=== PATIENT | female | born 1950 | race Caucasian/White ===

== ENCOUNTER → 2016-10-04 | Outpatient (CLI) | payer MEDICARE, OTHER ==
--- NOTE | 2016-10-06 09:05 | MM ---
Reason for exam: screening (asymptomatic). Last mammogram was performed 1 year and 7 months ago. History: Patient is postmenopausal. Family history of breast cancer in sister. Physical Findings: A clinical breast exam by your physician is recommended on an annual basis and results should be correlated with mammographic findings. MG 3D Screening Mammo W/Cad Bilateral CC and MLO view(s) were taken. Prior study comparison: March 03, 2015, bilateral MG screening mammo w CAD. There are scattered fibroglandular densities. No suspicious abnormality. No significant changes when compared with prior studies. ASSESSMENT: Negative, BI-RAD 1 RECOMMENDATION: Routine screening mammogram of both breasts in 1 year.
== END | disposition home or self-care (01) ==
LOC: RADMAMWWP 07:43
PROVIDERS: ATTEND Family Medicine
DX: Z12.31 Encounter for screening mammogram for malignant neoplasm of breast (principal)
CPT/HCPCS: 77063; G0202

== ENCOUNTER → 2017-03-12 | Outpatient (CLI) | payer MEDICARE, OTHER ==
--- NOTE | 2017-03-12 08:49 | BD ---
EXAMINATION TYPE: MG DEXA axial skeleton. DATE OF EXAM: 03/12/2017 COMPARISON: NONE CLINICAL HISTORY: Z13.820 screeening osteroporosis Height: 60 Weight: 219.2 FRAX RISK QUESTIONS: Alcohol (3 or more units per day): no Family History (Parent hip fracture): no Glucocorticoids (More than 3mos): no (Ex: prednisone, prednisolone, methylprednisolone, dexamethasone, and hydrocortisone). History of Fracture in Adulthood: yes Secondary Osteoporosis: 1. Type 1 Diabetes: no 2. Hyperthyroidism: no 3. Menopause before 45: no 4. Malnutrition: no 5. Chronic liver disease: no Rheumatoid Arthritis: no Current Tobacco Use: no RISK FACTORS HISTORY OF: Hip Fracture (Right/Left): no Spine Fracture: no History of Wrist Fracture: no Surgery to Spine/Hip(right/left)/Wrist (right/left): no Family History of Osteoporosis: no Active: no Diet low in dairy products/other sources of calcium: yes Postmenopausal woman: age 45 Lost more than 2 inches in height since high school: no Frequent falls: no Poor Health: no Hyperparathyroidism: no Adrenal Insufficiency: no MEDICATIONS: statin, aspirin, bp med Additional History: EXAM MEASUREMENTS: Bone mineral densitometry was performed using the [employer] System. Bone mineral density as measured about the Lumbar spine is: ----- L1-L4(G/cm2): 1.433 T Score Values are as follows: ----- L2: 2.4 ----- L3: 3.0 ----- L4: 1.7 ----- L1-L4: 2.1 Bone mineral density baseline Bone mineral density about the R hip (g/cm2): 1.189 Bone mineral density about the L hip (g/cm2): 1.164 T Score values are as follows: -----R Neck: 1.1 -----L Neck: 0.9 -----R Total: 2.3 -----L Total: 2.5 Bone mineral density baseline IMPRESSION: No evidence for osteoporosis or osteopenia. NOTE: T-SCORE=SD OF THE YOUNG ADULT MEAN.
== END | disposition home or self-care (01) ==
LOC: RADBDWWP 07:20
PROVIDERS: ATTEND Family Medicine
DX: Z13.820 Encounter for screening for osteoporosis (principal)
CPT/HCPCS: 77080

== ENCOUNTER → 2018-04-09 | Outpatient (CLI) | payer MEDICARE, OTHER ==
--- NOTE | 2018-04-10 13:38 | MM ---
Reason for exam: screening (asymptomatic). Last mammogram was performed 1 year and 6 months ago. History: Patient is postmenopausal. Family history of breast cancer in sister. Physical Findings: A clinical breast exam by your physician is recommended on an annual basis and results should be correlated with mammographic findings. MG 3D Screening Mammo W/Cad Bilateral CC and MLO view(s) were taken. Prior study comparison: October 04, 2016, bilateral MG 3d screening mammo w/cad. March 03, 2015, bilateral MG screening mammo w CAD. The breast tissue is heterogeneously dense. This may lower the sensitivity of mammography. No significant changes when compared with prior studies. ASSESSMENT: Benign, BI-RAD 2 RECOMMENDATION: Routine screening mammogram of both breasts in 1 year.
== END ==
LOC: RADMAMWWP 12:57
PROVIDERS: ATTEND Family Medicine
DX: Z12.31 Encounter for screening mammogram for malignant neoplasm of breast (principal); Z13.820 Encounter for screening for osteoporosis
CPT/HCPCS: 77063; 77067

== ENCOUNTER → 2018-10-10 | Outpatient (CLI) | payer MEDICARE, OTHER | END | disposition home or self-care (01) | LOC: LABWHC1 15:34 | DX: R94.4 Abnormal results of kidney function studies (principal) | CPT/HCPCS: 82043 ==

== ENCOUNTER → 2019-04-15 | Outpatient (CLI) | payer MEDICARE, OTHER ==
--- NOTE | 2019-04-17 15:08 | MM ---
Reason for exam: screening (asymptomatic). Last mammogram was performed 1 year ago. History: Patient is postmenopausal. Family history of breast cancer in sister. Took hormonal contraceptives for 15 years. Physical Findings: A clinical breast exam by your physician is recommended on an annual basis and results should be correlated with mammographic findings. MG 3D Screening Mammo W/Cad Bilateral CC and MLO view(s) were taken. Prior study comparison: April 09, 2018, bilateral MG 3d screening mammo w/cad. October 04, 2016, bilateral MG 3d screening mammo w/cad. There are scattered fibroglandular densities. No significant changes when compared with prior studies. ASSESSMENT: Incomplete: need additional imaging evaluation, BI-RAD 0 RECOMMENDATION: Ultrasound of the left breast. [facility] will attempt to contact patient to return for ultrasound.
== END | disposition home or self-care (01) ==
LOC: RADMAMWWP 13:44
PROVIDERS: ATTEND Family Medicine
DX: Z12.31 Encounter for screening mammogram for malignant neoplasm of breast (principal); Z80.3 Family history of malignant neoplasm of breast
CPT/HCPCS: 77063; 77067

== ENCOUNTER → 2019-04-24 | Outpatient (CLI) | payer MEDICARE, OTHER ==
--- NOTE | 2019-04-24 11:00 | USB ---
Reason for exam: additional evaluation requested from abnormal screening. History: Patient is postmenopausal. Family history of breast cancer in sister. Took hormonal contraceptives for 15 years. Physical Findings: Nurse did not find any significant physical abnormalities on exam. US Breast Workup Limited LT Left limited breast ultrasound including focal area of concern, retroareolar and axilla demonstrates benign appearing axillary lymph nodes. These results were verbally communicated with the patient and result sheet given to the patient on 04/24/19. ASSESSMENT: Incomplete: need additional imaging evaluation, BI-RAD 0 RECOMMENDATION: Special view mammogram of the left breast. (left lateral and spot CC)
--- NOTE | 2019-04-24 11:01 | MM ---
Reason for exam: additional evaluation requested from abnormal screening. Last mammogram was performed less than 1 month ago. History: Patient is postmenopausal. Family history of breast cancer in sister. Took hormonal contraceptives for 15 years. MG 3D Work Up W/Cad LT Spot compression CC and ML view(s) were taken of the left breast. Prior study comparison: April 15, 2019, bilateral MG 3d screening mammo w/cad. April 09, 2018, bilateral MG 3d screening mammo w/cad. The breast tissue is heterogeneously dense. This may lower the sensitivity of mammography. Benign appearing calcifications in the left breast. The previously seen abnormality resolves on additional views and appears as fibroglandular tissue compatible with summation. These results were verbally communicated with the patient and result sheet given to the patient on 04/24/19. ASSESSMENT: Benign, BI-RAD 2 RECOMMENDATION: Return to routine screening mammogram schedule for both breasts.
== END | disposition home or self-care (01) ==
LOC: RADUSWWP 09:19
PROVIDERS: ATTEND Family Medicine
DX: R92.8 Other abnormal and inconclusive findings on diagnostic imaging of breast (principal)
CPT/HCPCS: 77065; 76642; G0279; 77061

== ENCOUNTER → 2019-06-24 | Outpatient (CLI) | payer MEDICARE, OTHER ==
--- NOTE | 2019-06-24 09:25 | US ---
EXAMINATION TYPE: US transvaginal DATE OF EXAM: 06/24/2019 COMPARISON: NONE CLINICAL HISTORY: N95.0 post menopausal bleeding. TECHNIQUE: Transvaginal (TV). Date of LMP: Patient was 44 when menses ceased EXAM MEASUREMENTS: Uterus: 8.0 x 2.9 x 1.4 cm Endometrial Stripe: 1.3 cm Right Ovary: 1.4 x 0.8 x 0.8 cm Left Ovary: 1.4 x 0.9 x0.9 cm 1. Uterus: Anteverted wnl 2. Endometrium: thickened, small anechoic structure within, possible cyst measuring 3mm 3. Right Ovary: wnl 4. Left Ovary: wnl 5. Bilateral Adnexa: wnl 6. Posterior cul-de-sac: wnl IMPRESSION: Small endometrial cyst. Otherwise unremarkable study.
== END | disposition home or self-care (01) ==
LOC: RADUSWWP 08:09
PROVIDERS: ATTEND Family Medicine
DX: N85.8 Other specified noninflammatory disorders of uterus (principal)
CPT/HCPCS: 76830

== ENCOUNTER → 2019-07-31 | Day surgery (SDC) | payer MEDICARE, OTHER ==
[2019-07-29 15:52] VITALS: BMI 40.0
--- NOTE | 2019-07-30 10:38 | P.HPOB ---
History of Present Illness H&P Date: 07/30/19 Chief Complaint: Postmenopausal bleeding Chelo is a 69-year-old female who had agonist and thickened endometrium on ultrasound. At the end of May she also had an episode of bleeding for approximately 5 days. No symptoms since then. She is scheduled for a D&C with hysteroscopy. Risks/benefits/alternatives were reviewed the patient in detail and all questions were answered for her prior to proceeding to the operative room. Past Medical History Past Medical History: Hyperlipidemia, Hypertension, Osteoarthritis (OA) History of Any Multi-Drug Resistant Organisms: None Reported Past Surgical History: Ear Surgery Additional Past Surgical History / Comment(s): RIGHT EAR SURGERY Past Anesthesia/Blood Transfusion Reactions: No Reported Reaction Smoking Status: Current every day smoker - Past Family History Sister(s) Family Medical History: Cancer Brother(s) Family Medical History: Cancer Medications and Allergies Home Medications Medication Instructions Recorded Confirmed Type Aspirin 81 mg PO DAILY 03/05/15 07/29/19 History Atorvastatin [Lipitor] 40 mg PO HS 03/05/15 07/29/19 History Calcium Carbonate/Vitamin D3 1 each PO DAILY 07/29/19 07/29/19 History [Calcium 600-Vit D3 800 Caplet] Lisinopril [Zestril] 10 mg PO DAILY 07/29/19 07/29/19 History Allergies Allergy/AdvReac Type Severity Reaction Status Date / Time Milk Containing Products Allergy Diarrhea Verified 07/30/19 08:23 Exam Osteopathic Statement: *. No significant issues noted on an osteopathic structural exam other than those noted in the History and Physical/Consult. Intake and Output 07/29/19 07/30/19 07/30/19 22:59 06:59 14:59 Other: Weight 92.986 kg - OBG Physical Exam Breast: both: normal (no masses) Abdomen: bowel sounds normal, no diffuse tenderness, no bruit present, no guarding noted, no hepatomegaly, no splenomegaly, no mass Vulva: both: normal Vagina: normal moisture, no discharge Cervix: no lesion, no discharge Uterus: normal size, normal contour Adnexa: both: normal Anus/Rectum: normal perianal skin, no rectal mass, no hemorrhoids, heme negative
[~2019-07-31] MED LIST: DEXAMETHASONE SOD PHOSPHATE 10 MG/ML 1 ML VIAL IV ONE; HYDROmorphone 0.5 MG/0.5 ML SYRINGE IVP PRN; IBUPROFEN 200 MG TAB PO ONE; LACTATED RINGERS 1,000 ML IV SCH; LIDOCAINE 1% (10MG/ML) FOR IV START INTRADERMA ONE; LIDOCAINE 1% INJ 10MG/ML (20 ML MDV) ONE; MIDAZOLAM 2 MG/2 ML VIAL ONE; ONDANSETRON 4 MG/2 ML VIAL IVP ONE; PROPOFOL 10 MG/ML 20 ML VIAL IV ONE; Pre Op ABX Message 1 EACH MISC MISCELLANE ONE; fentaNYL (PF) 50 MCG/ML 2 ML AMP ONE
--- NOTE | 2019-07-31 11:18 | P.OP ---
Date of Procedure: 07/31/19 Preoperative Diagnosis: Postmenopausal bleeding Postoperative Diagnosis: Same with polyp Procedure(s) Performed: D&C with hysteroscopy and polypectomy Anesthesia: MONO Surgeon: Jayjay Austin Estimated Blood Loss (ml): 3 IV fluids (ml): 800 Pathology: other (Uterine curettings) Condition: stable Disposition: same day Operative Findings: Polyp noted await pathology Description of Procedure: Patient was taken to the operating suite where general anesthetic was found be adequate. She was prepped and draped in the normal sterile fashion and placed in the dorsal lithotomy position. Initially a speculum was inserted into the [place] and the anterior lip of the cervix identified and grasped with an Allis clamp. Uterus was then sounded to 6 cm and then was carefully dilated. Camera was then inserted with large polyp noted on the posterior wall. Sharp curettings were then obtained and placed on Telfa and sent to pathology. Polyp was then grasped with polyp forceps and removed in several pieces. Polyp was felt to be essentially completely removed however as no further polyp was able to be palpated during the removal process. Once this was completed all instruments removed. Sponge, lap, needle counts were all correct 2. Patient was then taken to the recovery room in stable and satisfactory condition. Plan - Discharge Summary Discharge Rx Participant: No New Discharge Prescriptions: New Ibuprofen [Motrin] 600 mg PO Q6HR PRN #30 tab PRN Reason: Pain No Action Atorvastatin [Lipitor] 40 mg PO HS Aspirin 81 mg PO DAILY Lisinopril [Zestril] 10 mg PO DAILY Calcium Carbonate/Vitamin D3 [Calcium 600-Vit D3 800 Caplet] 1 each PO DAILY Discharge Medication List Aspirin 81 mg PO DAILY 03/05/15 [History] Atorvastatin [Lipitor] 40 mg PO HS 03/05/15 [History] Calcium Carbonate/Vitamin D3 [Calcium 600-Vit D3 800 Caplet] 1 each PO DAILY 07/29/19 [History] Lisinopril [Zestril] 10 mg PO DAILY 07/29/19 [History] Ibuprofen [Motrin] 600 mg PO Q6HR PRN #30 tab 07/31/19 [Rx] Follow up Appointment(s)/Referral(s): Jayjay Austin DO [Doctor of Osteopathic Medicine] - 1 Week Activity/Diet/Wound Care/Special Instructions: No heavy lifting, limit stairs and driving, and pelvic rest. If any high temperatures, heavy bleeding, or severe pain call my office
[2019-07-31 11:39] VITALS: TEMP 96.8
[2019-07-31 13:37] VITALS: BP 159/93; PULSE 61; RESP 20
== END ==
LOC: OR 09:41
PROVIDERS: ATTEND Obstetrics & Gynecology
DX: N85.00 Endometrial hyperplasia, unspecified (principal); N95.0 Postmenopausal bleeding; I10 Essential (primary) hypertension; E78.5 Hyperlipidemia, unspecified; F17.210 Nicotine dependence, cigarettes, uncomplicated; Z79.82 Long term (current) use of aspirin; Z79.899 Other long term (current) drug therapy
CPT/HCPCS: 93005; 88305; 58558; J2250; J1100; J2405; J2001; J3010; J2704

== ENCOUNTER 2019-12-23 06:27 | Day surgery (SDC) | payer MEDICARE, OTHER ==
--- NOTE | 2019-12-19 15:58 | P.HPOB ---
History of Present Illness H&P Date: 12/19/19 Chief Complaint: Uterine hyperplasia Chelo is a 69-year-old female who had tubal hyperplasia 3 months ago and was started on progestins to cataract this hyperplasia. She is now scheduled for repeat D&C to verify the hyperplasia is resolved. Risks/benefits/alternatives were reviewed and all questions were answered for her prior to proceeding to the operative room. Past Medical History Past Medical History: Hyperlipidemia, Hypertension, Osteoarthritis (OA) History of Any Multi-Drug Resistant Organisms: None Reported Past Surgical History: Ear Surgery Additional Past Surgical History / Comment(s): RIGHT EAR SURGERY Past Anesthesia/Blood Transfusion Reactions: No Reported Reaction Past Psychological History: No Psychological Hx Reported Past Alcohol Use History: None Reported Additional Past Alcohol Use History / Comment(s): STARTED SMOKING AT AGE 14 SMOKED 2-3 PACKS RECENTLY SMOKING 1/4 PPD Past Drug Use History: None Reported - Past Family History Sister(s) Family Medical History: Cancer Brother(s) Family Medical History: Cancer Medications and Allergies Home Medications Medication Instructions Recorded Confirmed Type Aspirin 81 mg PO DAILY 03/05/15 07/29/19 History Atorvastatin [Lipitor] 40 mg PO HS 03/05/15 07/31/19 History Calcium Carbonate/Vitamin D3 1 each PO DAILY 07/29/19 07/29/19 History [Calcium 600-Vit D3 800 Caplet] lisinopriL [Zestril] 10 mg PO DAILY 07/29/19 07/31/19 History Ibuprofen [Motrin] 600 mg PO Q6HR PRN #30 tab 07/31/19 Rx Allergies Allergy/AdvReac Type Severity Reaction Status Date / Time Milk Containing Products Allergy Diarrhea Verified 07/30/19 08:23 Exam Osteopathic Statement: *. No significant issues noted on an osteopathic structural exam other than those noted in the History and Physical/Consult. - OBG Physical Exam Breast: both: normal (no masses) Abdomen: bowel sounds normal, no diffuse tenderness, no bruit present, no guarding noted, no hepatomegaly, no splenomegaly, no mass Vulva: both: normal Vagina: normal moisture, no discharge Cervix: no lesion, no discharge Uterus: normal size, normal contour Adnexa: both: normal Anus/Rectum: normal perianal skin, no rectal mass, no hemorrhoids, heme negative
[2019-12-22 09:03] VITALS: BMI 38.5
[~2019-12-23 06:27] MED LIST changes: -DEXAMETHASONE SOD PHOSPHATE 10 MG/ML 1 ML VIAL IV ONE; +DEXAMETHASONE SOD PHOSPHATE 4 MG/ML 1 ML VIAL IV ONE; -IBUPROFEN 200 MG TAB PO ONE; -LIDOCAINE 1% (10MG/ML) FOR IV START INTRADERMA ONE; -LIDOCAINE 1% INJ 10MG/ML (20 ML MDV) ONE; +MIDAZOLAM 2 MG/2 ML VIAL IV PRN; -MIDAZOLAM 2 MG/2 ML VIAL ONE; -PROPOFOL 10 MG/ML 20 ML VIAL IV ONE; -fentaNYL (PF) 50 MCG/ML 2 ML AMP ONE
[2019-12-23 07:03] LABS: Glucose,Whole Blood 97 mg/dL (75-99)
[2019-12-23 07:06] VITALS: TEMP 98.2
[2019-12-23] MEDS ORDERED: LIDOCAINE 1% (10MG/ML) FOR IV START INTRADERMA ONE (07:06)
[2019-12-23 07:10] LABS: Basophils # (A) 0.1 k/uL (0-0.2); Basophils % (A) 1 %; Eosinophils # (A) 0.4 k/uL (0-0.7); Eosinophils % (A) 4 %; HCT 42.4 % (34.0-46.0); HGB 13.9 gm/dL (11.4-16.0); Lymphocytes # (A) 2.9 k/uL (1.0-4.8); Lymphocytes % (A) 31 %; MCH 31.5 pg (25.0-35.0); MCHC 32.7 g/dL (31.0-37.0); MCV 96.4 fL (80.0-100.0); Mean Platelet Volume 8.9; Monocytes # (A) 0.5 k/uL (0-1.0); Monocytes % (A) 6 %; Neutrophils # (A) 5.3 k/uL (1.3-7.7); Neutrophils % (A) 56 %; Platelet Count 253 k/uL (150-450); RDW 12.9 % (11.5-15.5); WBC 9.4 k/uL (3.8-10.6)
[2019-12-23 07:21] LABS: Calcium 9.2 mg/dL (8.4-10.2); Potassium 4.1 mmol/L (3.5-5.1)
[2019-12-23] MEDS ORDERED: PROPOFOL 10 MG/ML 20 ML VIAL IV ONE (07:31)
[2019-12-23] MEDS ORDERED: LIDOCAINE 1% INJ 10MG/ML (20 ML MDV) ONE (07:31)
[2019-12-23] MEDS ORDERED: MIDAZOLAM 2 MG/2 ML VIAL ONE (07:31)
[2019-12-23] MEDS ORDERED: fentaNYL (PF) 50 MCG/ML 2 ML AMP ONE (07:31)
--- NOTE | 2019-12-23 08:03 | P.OP ---
Date of Procedure: 12/23/19 Preoperative Diagnosis: uterine hyperplasia Postoperative Diagnosis: Same Procedure(s) Performed: D&C with hysteroscopy Anesthesia: MONO Surgeon: Jayjay Austin Estimated Blood Loss (ml): 3 Pathology: other (Uterine curettings) Condition: stable Operative Findings: No hyperplasia noted visually. Scant tissue collected likely secondary to Provera effect Description of Procedure: Patient was taken to the operating suite where a general anesthetic was found be adequate. She was prepped and draped in normal sterile fashion and placed in dorsal lithotomy position. Initially a weighted speculum was inserted in the vagina and the anterior lip of the cervix was identified and grasped an Allis clamp. Cervix was then dilated and camera was inserted. No hyperplasia noted therefore camera was removed and sharp curettings of endometrium were obtained. This tissues collected, placed on Telfa, and sent to pathology for evaluation. All instruments were then removed. Sponge, lap, needle counts were all correct 2. Patient was then taken to recovery room in stable and satisfactory condition. Plan - Discharge Summary Discharge Rx Participant: No New Discharge Prescriptions: New Ibuprofen [Motrin] 600 mg PO Q6HR PRN #30 tab PRN Reason: Pain No Action Atorvastatin [Lipitor] 40 mg PO DAILY Aspirin 81 mg PO DAILY lisinopriL [Zestril] 10 mg PO DAILY diphenhydrAMINE [Benadryl] 25 mg PO DIRECTED PRN PRN Reason: Allergy Symptoms Medroxyprogesterone Acetate [Provera] 10 mg PO DAILY Calcium Citrate/Vitamin D3 [Citracal + D Maximum Caplet] 1 each PO DAILY Discharge Medication List Aspirin 81 mg PO DAILY 03/05/15 [History] Atorvastatin [Lipitor] 40 mg PO DAILY 03/05/15 [History] lisinopriL [Zestril] 10 mg PO DAILY 07/29/19 [History] Calcium Citrate/Vitamin D3 [Citracal + D Maximum Caplet] 1 each PO DAILY 12/22/19 [History] Medroxyprogesterone Acetate [Provera] 10 mg PO DAILY 12/22/19 [History] diphenhydrAMINE [Benadryl] 25 mg PO DIRECTED PRN 12/22/19 [History] Ibuprofen [Motrin] 600 mg PO Q6HR PRN #30 tab 12/23/19 [Rx] Follow up Appointment(s)/Referral(s): Jayjay Austin DO [Doctor of Osteopathic Medicine] - 1 Week Sotero Campos MD [Primary Care Provider] - 1-2 Days Activity/Diet/Wound Care/Special Instructions: No heavy lifting, limit stairs and driving, and pelvic rest. She is aware to call the office for any high temperatures, heavy bleeding, or severe pain and needs to follow up with her primary care provider in the next day or 2 for an abnormal EKG
[2019-12-23 08:33] VITALS: RESP 16
[2019-12-23 09:41] VITALS: BP 129/82; PULSE 68
== END 2019-12-23 09:56 | disposition home or self-care (01) ==
LOC: OR 06:27
PROVIDERS: ATTEND Obstetrics & Gynecology
DX: N85.01 Benign endometrial hyperplasia (principal); E78.5 Hyperlipidemia, unspecified; I10 Essential (primary) hypertension; M19.90 Unspecified osteoarthritis, unspecified site; F17.210 Nicotine dependence, cigarettes, uncomplicated; K08.409 Partial loss of teeth, unspecified cause, unspecified class; R06.09 Other forms of dyspnea; K75.9 Inflammatory liver disease, unspecified; Z88.6 Allergy status to analgesic agent; Z98.890 Other specified postprocedural states; Z79.82 Long term (current) use of aspirin; Z79.899 Other long term (current) drug therapy; Z79.1 Long term (current) use of non-steroidal anti-inflammatories (NSAID); Z91.011 Allergy to milk products; Z91.89 Other specified personal risk factors, not elsewhere classified; Z80.9 Family history of malignant neoplasm, unspecified
CPT/HCPCS: 88305; 80048; 85025; 58558; J2250; J1100; J2405; J2001; J3010; J2704

== ENCOUNTER → 2020-04-01 | Outpatient (CLI) | payer MEDICARE, OTHER ==
--- NOTE | 2020-04-01 16:29 | CTL ---
EXAMINATION TYPE: CT Low Dose Lung DATE OF EXAM ORDERED: 04/01/2020 COMPARISON: None HISTORY: . Low Dose CT Lung Screening CT DLP: 78.[address] CTDI: 2.4 mGy IV CONTRAST USED: None. SCREENING VISIT: First visit COMPARISON: None. TECHNIQUE: Low dose computed tomography scan was performed through the chest at 1 millimeter thick se ctions and reconstructed images in the coronal plane at [address] DIAGNOSTIC QUALITY: Satisfactory FINDINGS: LUNG NODULES: Pleural-based groundglass and nodular density left upper lobe posteriorly measuring 7.9 mm. 2 mm solid nodule right upper lobe image 47. Groundglass area of nodularity anteriorly right upp er lobe image 61 measures 4.7 mm. LUNGS: COPD: Severity: None Fibrosis: Severity:None Lymph nodes: None Other findings: None RIGHT PLEURAL SPACE: Effusion: None Calcification: None Thickening: None Pneumothorax: None LEFT PLEURAL SPACE: Effusion: None Calcification: None Thickening: None Pneumothorax: None HEART: Heart Size: Moderately enlarged Coronary calcification: Mild Pericardial effusion: None OTHER FINDINGS: Upper abdomen: No significant abnormality Bony thorax: Degenerative changes Supraclavicular region: No significant abnormalityOther: No significant abnormalityI IMPRESSION: Benign FOLLOW UP CT CHEST RECOMMENDATION: Follow-up study in [address] cessation [address]. [address] LUNG RAD: LUNG RAD CATEGORY 3 probably benign.
== END | disposition home or self-care (01) ==
LOC: RADCTMAIN 15:56
PROVIDERS: ATTEND Family Medicine
DX: Z12.2 Encounter for screening for malignant neoplasm of respiratory organs (principal); F17.210 Nicotine dependence, cigarettes, uncomplicated
CPT/HCPCS: 71271

== ENCOUNTER → 2020-05-28 | Outpatient (CLI) | payer MEDICARE, OTHER ==
--- NOTE | 2020-05-30 13:36 | BD ---
EXAMINATION TYPE: Axial Bone Density DATE OF EXAM: 05/28/2020 COMPARISON: 03/12/2017 CLINICAL HISTORY: 70-year-old female postmenopausal screening Height: 60.5 IN Weight: 191 LBS FRAX RISK QUESTIONS: History of Fracture in Adulthood: LT ANKLE AGE 51; RT WRIST AGE 55 Secondary Osteoporosis: 3. Menopause before 45: AGE 44 Current Tobacco Use: OCCASIONAL RISK FACTORS HISTORY OF: History of Wrist Fracture: RT WRIST AGE 55 Active: MODERATE Diet low in dairy products/other sources of calcium: YES Postmenopausal woman: AGE 44 Take estrogen and/or progesterone medications: TOOK PROVERA FOR 6 WEEKS AT AGE 69 MEDICATIONS: Additional Medications: CALCIUM, VIT D, CHOLESTEROL, BLOOD PRESSURE, BABY ASPIRIN EXAM MEASUREMENTS: Bone mineral densitometry was performed using the [employer] System. Bone mineral density as measured about the Lumbar spine is: ----- L1-L4(G/cm2): 1.505 T Score Values are as follows: ----- L2: 2.7 ----- L3: 3.1 ----- L4: 3.0 ----- L1-L4: 2.7 Bone mineral density has: Increased 4.9% since study of: 03/12/2017 Bone mineral density about the R hip (g/cm2): 1.200 Bone mineral density about the L hip (g/cm2): 1.190 T Score values are as follows: -----R Neck: 1.2 -----L Neck: 1.1 -----R Total: 2.5 -----L Total: 2.7 Bone mineral density has: Increased 2.1% since study of: 03/12/2017 IMPRESSION: Normal (Values between +1 and -1 indicate normal bone mass). Consider repeating this study in 5 year s or sooner if there is some new clinical indication. NOTE: T-SCORE=SD OF THE YOUNG ADULT MEAN.
--- NOTE | 2020-05-31 08:44 | MM ---
Reason for exam: screening (asymptomatic). Last mammogram was performed 1 year and 1 month ago. History: Patient is postmenopausal. Family history of breast cancer in sister. Took hormonal contraceptives for 15 years. Physical Findings: A clinical breast exam by your physician is recommended on an annual basis and results should be correlated with mammographic findings. MG 3D Screening Mammo W/Cad Bilateral CC and MLO view(s) were taken. Prior study comparison: April 15, 2019, bilateral MG 3d screening mammo w/cad. April 09, 2018, bilateral MG 3d screening mammo w/cad. October 04, 2016, bilateral MG 3d screening mammo w/cad. There are scattered fibroglandular densities. There are benign appearing round linear calcifications bilaterally. There is no discrete abnormality. ASSESSMENT: Benign, BI-RAD 2 RECOMMENDATION: Routine screening mammogram of both breasts in 1 year.
== END | disposition home or self-care (01) ==
LOC: RADMAMWWP 09:48
PROVIDERS: ATTEND Family Medicine
DX: Z12.31 Encounter for screening mammogram for malignant neoplasm of breast (principal); Z13.820 Encounter for screening for osteoporosis; Z78.0 Asymptomatic menopausal state; Z80.3 Family history of malignant neoplasm of breast
CPT/HCPCS: 77063; 77067; 77080

== ENCOUNTER → 2020-08-09 | Outpatient (CLI) | payer MEDICARE, OTHER ==
[2020-08-09 12:09] LABS: Creatinine 24 Hour,Urine 1102.4 mg/24hr (800.0-1800.0)
[2020-08-09 16:24] LABS: Total Volume 24 Hour,Urine 1600 mL
== END | disposition home or self-care (01) ==
LOC: LABWHC1 08:27
PROVIDERS: ATTEND Family Medicine
DX: N18.31 Chronic kidney disease, stage 3a (principal)
CPT/HCPCS: 36415; 81050; 82575; 84156

== ENCOUNTER → 2020-08-19 | Outpatient (CLI) | payer MEDICARE, OTHER ==
--- NOTE | 2020-08-19 09:40 | US ---
EXAMINATION TYPE: US abdomen comp/pelvis limited DATE OF EXAM: 08/19/2020 COMPARISON: NONE CLINICAL HISTORY: HTN I10,N18.31 CKD stage 3, O87.891 former smoker. Abnormal labs per patient. No pa in. EXAM MEASUREMENTS: Liver Length: 16.8 cm Gallbladder Wall: 0.2 cm CBD: 0.4 cm Spleen: 9.5 cm Right Kidney: 9.6 x 4.0 x 4.2 cm Left Kidney: 9.5 x 4.2 x 5.1 cm Pancreas: Visualized portions pancreas unremarkable. Liver: wnl no discrete hepatic mass or intrahepatic biliary dilatation. Gallbladder: wnl CBD: wnl Spleen: wnl Right Kidney: No hydronephrosis or masses seen right kidney is small measuring 85 mL. Left Kidney: No hydronephrosis or masses seen Upper IVC: wnl Abd Aorta: No AAA visualized Bladder: wnl, distended, anechoic Bilateral Jets not seen IMPRESSION: 1. No hydronephrosis or shadowing renal calculi. 2. No gallstones. 3. No hydronephrosis or shadowing renal calculi. The right kidney is small.
== END | disposition home or self-care (01) ==
LOC: RADUSWWP 08:50
PROVIDERS: ATTEND Family Medicine
DX: I12.9 Hypertensive chronic kidney disease with stage 1 through stage 4 chronic kidney disease, or unspecified chronic kidney disease (principal); N18.30 Chronic kidney disease, stage 3 unspecified; Z87.891 Personal history of nicotine dependence
CPT/HCPCS: 76700; 76857

== ENCOUNTER → 2020-10-04 | Outpatient (CLI) | payer MEDICARE, OTHER ==
--- NOTE | 2020-10-05 07:14 | CTL ---
EXAMINATION TYPE: CT Low Dose Lung DATE OF EXAM ORDERED: 10/04/2020 HISTORY: Long-term tobacco use. Lung cancer screening CT DLP: 71.[address] CTDI: 2.4 mGy Automated exposure control for dose reduction was used. SCREENING VISIT: First after baseline COMPARISON: CT Low Dose Lung screening April 01, 2020 TECHNIQUE: Low dose computed tomography scan was performed through the chest at 1 mm thick sections a nd reconstructed images in the coronal plane at [address] DIAGNOSTIC QUALITY: Satisfactory FINDINGS: LUNG NODULES: Present, detailed below: Scattered micronodules predominantly in the right upper lung, largest measures 3.7 x 2.9 mm periphera l right upper lobe axial image 29 unchanged from prior. Stable 7 to 8 mm posterior groundglass nodula rity axial image 33 has more linear orientation on coronal and sagittal images favoring focal scarrin g. No new or enlarging greater than 6 mm nodules. LUNGS: COPD: Severity: Minimal Fibrosis: Severity: Stable mild left basilar Lymph nodes: No new greater than 1 cm Other findings: None RIGHT PLEURAL SPACE: Effusion: None Calcification: None Thickening: None Pneumothorax: None LEFT PLEURAL SPACE: Effusion: None Calcification: None Thickening: None Pneumothorax: None HEART: Heart Size: Mild to moderately enlarged Coronary calcification: At least moderate in the RCA and LAD distribution Pericardial effusion: None OTHER FINDINGS: Upper abdomen: None Bony thorax: Mild to moderate multilevel spurring Supraclavicular region: None Other: Mild to moderate calcified plaque of the aorta IMPRESSION: No suspicious new or enlarging nodules CT LUNG RAD AND CT CHEST RECOMMENDATION: Lung-Rad 2 Benign Appearance or Behavior: Continue annual sc reening with LDCT in 12 months. S Modifier (other clinically significant findings): S Moderate to severe coronary artery calcification. Correlate with additional cardiac risk factors.
== END | disposition home or self-care (01) ==
LOC: RADCTMAIN 16:10
PROVIDERS: ATTEND Family Medicine
DX: Z12.2 Encounter for screening for malignant neoplasm of respiratory organs (principal); Z87.891 Personal history of nicotine dependence
CPT/HCPCS: 71271

== ENCOUNTER → 2021-06-17 | Outpatient (CLI) | payer MEDICARE ==
--- NOTE | 2021-06-20 09:39 | MM ---
Reason for exam: screening (asymptomatic). Last mammogram was performed 1 year and 1 month ago. History: Patient is postmenopausal. Family history of breast cancer in sister. Took hormonal contraceptives for 15 years. Physical Findings: A clinical breast exam by your physician is recommended on an annual basis and results should be correlated with mammographic findings. MG 3D Screening Mammo W/Cad Bilateral CC and MLO view(s) were taken. Prior study comparison: May 28, 2020, bilateral MG 3d screening mammo w/cad. April 24, 2019, left breast MG 3d work up w/cad LT. The breast tissue is heterogeneously dense. This may lower the sensitivity of mammography. Stable benign calcifications. There is no discrete abnormality. No significant changes when compared with prior studies. ASSESSMENT: Benign, BI-RAD 2 RECOMMENDATION: Routine screening mammogram of both breasts in 1 year.
== END | disposition home or self-care (01) ==
LOC: RADMAMWWP 16:18
PROVIDERS: ATTEND Family Medicine
DX: Z12.31 Encounter for screening mammogram for malignant neoplasm of breast (principal); Z80.3 Family history of malignant neoplasm of breast; Z78.0 Asymptomatic menopausal state
CPT/HCPCS: 77063; 77067

== ENCOUNTER 2022-05-03 10:54 | Emergency (ER) | payer MEDICARE ==
[2022-05-03 11:21] VITALS: TEMP 98.4
[2022-05-03 12:23] LABS: Basophils # (A) 0.1 k/uL (0-0.2); Basophils % (A) 1 %; Eosinophils # (A) 0.3 k/uL (0-0.7); Eosinophils % (A) 4 %; HGB 13.9 gm/dL (11.4-16.0); Lymphocytes # (A) 2.1 k/uL (1.0-4.8); Lymphocytes % (A) 28 %; MCHC 33.2 g/dL (31.0-37.0); MCV 93.6 fL (80.0-100.0); Mean Platelet Volume 9.9; Monocytes # (A) 0.4 k/uL (0-1.0); Monocytes % (A) 6 %; Neutrophils # (A) 4.4 k/uL (1.3-7.7); Neutrophils % (A) 59 %; Platelet Count 233 k/uL (150-450); RBC 4.49 m/uL (3.80-5.40); WBC 7.5 k/uL (3.8-10.6)
[2022-05-03 12:33] LABS: Albumin 4.1 g/dL (3.5-5.0); Calcium 9.3 mg/dL (8.4-10.2); Potassium 4.3 mmol/L (3.5-5.1); Total Bilirubin 0.6 mg/dL (0.2-1.3); Total Protein 7.2 g/dL (6.3-8.2)
[2022-05-03 12:43] LABS: Partial Thromboplastin Time 22.1 sec (22.0-30.0); Prothrombin Time 10.2 sec (9.0-12.0)
--- NOTE | 2022-05-03 13:29 | ED ---
General Adult HPI - General Chief complaint: Recheck/Abnormal Lab/Rx Stated complaint: abn ekg - sent by pcp Time Seen by Provider: 05/03/22 11:23 Source: patient, family, RN notes reviewed, old records reviewed Mode of arrival: wheelchair Limitations: no limitations - History of Present Illness Initial comments: Patient is a 72-year-old female sent over from her PCPs over concern for abnormal EKG findings. They did contact me and they're considered patient was in a second degree heart block. Patient presented for blood pressure checks that they have been adjusting blood pressure medications. Currently has no acute complaints at this time. Denies chest pain, shortness breath, abdominal pain, nausea, vomiting. Denies any other acute complaints. Denies any presyncopal episodes. Denies any lightheadedness. Presents over concern for the EKG findings. Blood pressure has been lower and they have been reducing her blood pressure medications over this time as she appears that she does not need them. - Related Data Home Medications Medication Instructions Recorded Confirmed Aspirin 81 mg PO DAILY 03/05/15 12/23/19 Atorvastatin [Lipitor] 40 mg PO DAILY 03/05/15 12/23/19 lisinopriL [Zestril] 10 mg PO DAILY 07/29/19 12/23/19 Calcium Citrate/Vitamin D3 1 each PO DAILY 12/22/19 12/23/19 [Citracal + D Maximum Caplet] Medroxyprogesterone Acetate 10 mg PO DAILY 12/22/19 12/23/19 [Provera] diphenhydrAMINE [Benadryl] 25 mg PO DIRECTED PRN 12/22/19 12/23/19 Previous Rx's Medication Instructions Recorded Ibuprofen [Motrin] 600 mg PO Q6HR PRN #30 tab 12/23/19 Allergies Allergy/AdvReac Type Severity Reaction Status Date / Time Milk Containing Products Allergy Diarrhea Verified 05/03/22 11:21 Review of Systems ROS Statement: Those systems with pertinent positive or pertinent negative responses have been documented in the HPI. Review of Systems: CONST: Denies fever EYES: Denies blurry vision ENT: Denies nasal congestion C/V: Denies Chest pain RESP: Denies shortness of breath GI: Denies abdominal pain : Denies dysuria SKIN: Denies rash. MSK: Denies joint pain. NEURO: Denies headache ROS Other: All systems not noted in ROS Statement are negative. Past Medical History Past Medical History: Hyperlipidemia, Hypertension, Osteoarthritis (OA) Additional Past Medical History / Comment(s): LACTOSE INTOLERANT, ANEMIA., STATES SOB AT TIMES -"I WONDER IF I HAVE COPD" History of Any Multi-Drug Resistant Organisms: None Reported Past Surgical History: Ear Surgery Additional Past Surgical History / Comment(s): RIGHT EAR SURGERY Past Anesthesia/Blood Transfusion Reactions: Postoperative Nausea & Vomiting (PONV) Past Psychological History: No Psychological Hx Reported Smoking Status: Current every day smoker Past Alcohol Use History: None Reported Past Drug Use History: None Reported - Past Family History Sister(s) Family Medical History: Cancer, Diabetes Mellitus Additional Family Medical History / Comment(s): BREAST & FEMALE CANCER Brother(s) Family Medical History: Cancer Additional Family Medical History / Comment(s): BONE AND BLOOD CANCER Mother Family Medical History: Diabetes Mellitus Daughter(s) Additional Family Medical History / Comment(s): HYPOGLYCEMIA General Exam - General Exam Comments Initial Comments: General: Appears in no acute distress. HEAD: Normal with no signs of head trauma. EYES: PERRLA, EOMI, conjunctiva normal, no discharge. ENT: Hearing grossly intact, normal oropharynx. RESPIRATORY: Clear breath sounds bilaterally. No wheezes, rales, or rhonchi. C/V: Regular rate and rhythm. S1 and S2 auscultated, no edema, peripheral pu lses 2+ and intact throughout ABD: Abd is soft, nontender, nondistended EXT: Normal range of motion, no obvious deformity SKIN: No rashes or lesions observed on exposed skin. NEURO: Alert and oriented 4. Limitations: no limitations Course Vital Signs 05/03/22 05/03/22 05/03/22 11:15 11:40 11:50 Temperature 98.4 F Pulse Rate 113 H 96 112 H Respiratory 18 17 14 Rate Blood Pressure 103/71 106/83 121/80 O2 Sat by Pulse 95 95 95 Oximetry 05/03/22 14:02 Temperature Pulse Rate 56 L Respiratory 18 Rate Blood Pressure 131/70 O2 Sat by Pulse 97 Oximetry Medical Decision Making - Medical Decision Making Was pt. sent in by a medical professional or institution (, PA, IMAGE ASSEMBLER, urgent care, hospital, or [facility]...) When possible be specific @ -Patient sent in by Dr. Ramirez's office for further evaluation. Did you speak to anyone other than the patient for history (EMS, parent, family, police, friend...)? What history was obtained from this source @ -No Did you review nursing and triage notes (agree or disagree)? Why? @ -I reviewed and agree with nursing and triage notes Were old charts reviewed (outside hosp., previous admission, EMS record, old EKG, old radiological studies, urgent care reports/EKG's, [facility] records)? Report findings @ -Yes, old charts were reviewed including EKGs from 2019. Differential Diagnosis (chest pain, altered mental status, abdominal pain women, abdominal pain men, vaginal bleeding, weakness, fever, dyspnea, syncope, headache, dizziness, GI bleed, back pain, seizure, CVA, palpatations, mental health, musculoskeletal)? @ -Dysrhythmia, electrolyte abnormality, dehydration, heart block. This list is not all-inclusive. EKG interpreted by me (3pts min.). @ -As above X-rays interpreted by me (1pt min.). @ -None done CT interpreted by me (1pt min.). @ -None done U/S interpreted by me (1pt. min.). @ -None done What testing was considered but not performed or refused? (CT, X-rays, U/S, labs)? Why? @ -None What meds were considered but not given or refused? Why? @ -None Did you discuss the management of the patient with other professionals (professionals i.e. , PA, IMAGE ASSEMBLER, lab, RT, psych nurse, social media assistant, camp director, teacher, food safety officer, onsite case manager)? Give summary @ -No Was smoking cessation discussed for >3mins.? @ -No Was critical care preformed (if so, how long)? @ -No Were there social determinants of health that impacted care today? How? (Homelessness, low income, unemployed, alcoholism, drug addiction, transportation, low edu. Level, literacy, decrease access to med. care, custodial, rehab)? @ -No Was there de-escalation of care discussed even if they declined (Discuss DNR or withdrawal of care, Hospice)? DNR status @ -No What co-morbidities impacted this encounter? (DM, HTN, Smoking, COPD, CAD, Cancer, CVA, ARF, Chemo, Hep., AIDS, mental health diagnosis, sleep apnea, morbid obesity)? @ -None Was patient admitted / discharged? Hospital course, mention meds given and route, prescriptions, significant lab abnormalities, going to OR and other pertinent info. @ -Based on the patient's presentation and physical exam, I'm concerned for possible arrhythmia for the patient. She is asymptomatic. Findings are incidental. We'll obtain basic labs as well as an EKG. She was in agreement this plan. Vital signs within normal limits. On the monitor does appear that patient is having PACs causing a dropped beat. We will obtain 12-lead EKG for comparison. EKG does show times rhythm with first-degree AV block which is chronic as well as supraventricular premature complexes. Patient's laboratory studies are within acceptable limits. Patient remained a symptomatically about signs remained within acceptable limits. I discussed findings with the patient. She expressed understanding as well for as family. She'll be discharged home at thi s time. Strict return precautions were discussed. She was in agreement with this plan. She'll follow up with her PCP in the coming days. Undiagnosed new problem with uncertain prognosis? @ -No Drug Therapy requiring intensive monitoring for toxicity (Heparin, Nitro, Insulin, Cardizem)? @ -No Were any procedures done? @ -No Diagnosis/symptom? @ -Premature atrial complexes, first-degree AV block Acute, or Chronic, or Acute on Chronic? @ -Acute on chronic Uncomplicated (without systemic symptoms) or Complicated (systemic symptoms)? @ -Uncomplicated Side effects of treatment? @ -No Exacerbation, Progression, or Severe Exacerbation? @ -No Poses a threat to life or bodily function? How? (Chest pain, [place], [place], pneumonia, PE, COPD, DKA, ARF, appy, cholecystitis, CVA, Diverticulitis, Homicidal, Suicidal, threat to staff... and all critical care pts) @ -No - Lab Data Result diagrams: 05/03/22 12:11 05/03/22 12:11 Lab Results 05/03/22 05/03/22 05/03/22 Range/Units 12:11 12:11 12:11 WBC 7.5 (3.8-10.6) k/uL RBC 4.49 (3.80-5.40) m/uL Hgb 13.9 (11.4-16.0) gm/dL Hct 42.0 (34.0-46.0) % MCV 93.6 (80.0-100.0) fL MCH 31.0 (25.0-35.0) pg MCHC 33.2 (31.0-37.0) g/dL RDW 13.0 (11.5-15.5) % Plt Count 233 (150-450) k/uL MPV 9.9 Neutrophils % 59 % Lymphocytes % 28 % Monocytes % 6 % Eosinophils % 4 % Basophils % 1 % Neutrophils # 4.4 (1.3-7.7) k/uL Lymphocytes # 2.1 (1.0-4.8) k/uL Monocytes # 0.4 (0-1.0) k/uL Eosinophils # 0.3 (0-0.7) k/uL Basophils # 0.1 (0-0.2) k/uL PT 10.2 (9.0-12.0) sec INR 1.0 (<1.2) APTT 22.1 (22.0-30.0) sec Sodium 141 (137-145) mmol/L Potassium 4.3 (3.5-5.1) mmol/L Chloride 108 H (98-107) mmol/L Carbon Dioxide 25 (22-30) mmol/L Anion Gap 8 mmol/L BUN 15 (7-17) mg/dL Creatinine 0.96 (0.52-1.04) mg/dL Est GFR (CKD-EPI)AfAm 68 (>60 ml/min/1.73 sqM) Est GFR (CKD-EPI)NonAf 59 (>60 ml/min/1.73 sqM) Glucose 93 (74-99) mg/dL Calcium 9.3 (8.4-10.2) mg/dL Total Bilirubin 0.6 (0.2-1.3) mg/dL AST 25 (14-36) U/L ALT 21 (4-34) U/L Alkaline Phosphatase 77 (38-126) U/L Total Protein 7.2 (6.3-8.2) g/dL Albumin 4.1 (3.5-5.0) g/dL - EKG Data -: EKG Interpreted by [place] EKG Comments: 12-lead Electrocardiogram Interpretation Note EKG was reviewed and interpreted by myself. 12-lead ECG performed at 1143 is interpreted by me as revealing sinus rhythm with PACs at a rate of 98 beats per minute. [place] is normal. FL interval is 202 ms, QRS duration is 83 ms, QTc is 424 ms.. There were no ST or T wave abnormalities to suggest myocardial ischemia or injury. R wave progression across the precordium was satisfactory. By my interpretation this EKG is non-diagnostic for acute ischemia. When compared with EKG from December 2019, no significant change. Disposition Clinical Impression: Premature atrial complexes, First degree AV block Disposition: HOME SELF-CARE Condition: Good Instructions (If sedation given, give patient instructions): Premature Atrial Contractions (ED) Is patient prescribed a controlled substance at d/c from ED?: No Referrals: Sotero Campos MD [Primary Care Provider] - 1-2 days Time of Disposition: 13:20
[2022-05-03 14:05] VITALS: BP 131/70; PULSE 56; RESP 18
== END 2022-05-03 14:05 | disposition home or self-care (01) ==
LOC: EC 10:54
DX: I49.1 Atrial premature depolarization (principal); I44.0 Atrioventricular block, first degree; I10 Essential (primary) hypertension; E78.5 Hyperlipidemia, unspecified; M19.90 Unspecified osteoarthritis, unspecified site; F17.200 Nicotine dependence, unspecified, uncomplicated; Z91.011 Allergy to milk products; Z79.82 Long term (current) use of aspirin; Z79.899 Other long term (current) drug therapy
CPT/HCPCS: 36415; 80053; 85025; 85610; 85730; 93005; 99285

== ENCOUNTER → 2022-06-20 | Outpatient (CLI) | payer MEDICARE ==
--- NOTE | 2022-06-21 09:08 | MM ---
Reason for Exam: Screening (asymptomatic). Last mammogram was performed 1 year(s) and 1 month(s) ago. Patient History: Menarche at age 14. First Full-Term at age 20. Postmenopausal. Patient used Hormonal Contraceptives for 15 years. Sister had breast cancer. Risk Values: Karissa 5 year model risk: 3.1%. NCI Lifetime model risk: 7.9%. Prior Study Comparison: 04/24/2019 Left Diagnostic Mammogram, [facility]. 05/28/2020 Bilateral Screening Mammogram, [facility]. 06/17/2021 Bilateral Screening Mammogram, [facility]. Tissue Density: There are scattered fibroglandular densities. Findings: Analyzed By CAD. There are regional benign-appearing linear calcifications in the bilateral breasts redemonstrated. Benign-appearing bilateral axillary lymph nodes are again seen. There is no suspicious new group of microcalcifications or new suspicious mass in either breast. Overall Assessment: Benign, BI-RAD 2 Management: Screening Mammogram of both breasts in 1 year. . Patient should continue monthly self-breast exams. A clinical breast exam by your physician is recommended on an annual basis. This exam should not preclude additional follow-up of suspicious palpable abnormalities. Note on Karissa scores and lifetime risk: 1. A Karissa score greater than 3% is considered moderate risk. If this is the case, consider specialist referral to assess eligibility for a risk reducing agent. 2. If overall lifetime risk for the development of breast cancer is 20% or higher, the patient may qualify for future screening with alternating mammogram and breast MRI. Electronically signed and approved by: Jose Dowd M.D.
== END | disposition home or self-care (01) ==
LOC: RADMAMWWP 09:26
PROVIDERS: ATTEND Family Medicine
DX: Z12.31 Encounter for screening mammogram for malignant neoplasm of breast (principal); Z78.0 Asymptomatic menopausal state; Z80.3 Family history of malignant neoplasm of breast
CPT/HCPCS: 77063; 77067

== ENCOUNTER → 2023-03-19 | Outpatient (CLI) | payer MEDICARE ==
[2023-03-19 18:43] LABS: HCT 42.2 % (37.2-46.3); HGB 13.7 g/dL (12.0-15.0); MCH 30.9 pg (27.0-32.0); MCHC 32.5 g/dL (32.0-37.0); Mean Platelet Volume 11.8 FL (9.5-12.2); NRBC Per 100 WBC 0 X 10*3/uL (0.00-0.01); Platelet Count 200 X 10*3/uL (140-440); RBC 4.44 X 10*6/uL (4.10-5.20); RDW 13.3 % (11.5-14.5)
[2023-03-19 18:55] LABS: Blood Urea Nitrogen 13.2 mg/dL (9.0-27.0); Chloride 107 mmol/L (96-109); Potassium 4.2 mmol/L (3.5-5.5); Sodium 141 mmol/L (135-145)
== END | disposition home or self-care (01) ==
LOC: LABPAT 10:52
PROVIDERS: ATTEND Internal Medicine
DX: Z01.812 Encounter for preprocedural laboratory examination (principal); R06.02 Shortness of breath
CPT/HCPCS: 36415; 80051; 82565; 84520; 85027

== ENCOUNTER 2023-03-23 09:53 | Day surgery (SDC) | payer MEDICARE ==
[2023-03-19 10:36] VITALS: BMI 37.8
[~2023-03-23 09:53] MED LIST changes: +ALPRAZolam 0.25 MG TAB PO PRN; +ALPRAZolam 0.5 MG TAB PO PRN; +ASPIRIN 325 MG TAB PO STA; -DEXAMETHASONE SOD PHOSPHATE 4 MG/ML 1 ML VIAL IV ONE; -HYDROmorphone 0.5 MG/0.5 ML SYRINGE IVP PRN; -LACTATED RINGERS 1,000 ML IV SCH; -MIDAZOLAM 2 MG/2 ML VIAL IV PRN; +NITROGLYCERIN SL TABS 0.4 MG TAB SUBLINGUAL PRN; -ONDANSETRON 4 MG/2 ML VIAL IVP ONE; -Pre Op ABX Message 1 EACH MISC MISCELLANE ONE; +SODIUM CHLORIDE 0.9% 1,000 ML in EMPTY BAG 1 BAG IV SCH
[2023-03-23] MEDS ORDERED: SODIUM CHLORIDE 0.9% 1,000 ML IV ONE (10:33)
[2023-03-23 10:42] VITALS: RESP 16; TEMP 97.3
[2023-03-23] MEDS ORDERED: MIDAZOLAM 2 MG/2 ML VIAL IVP ONE (11:03)
[2023-03-23] MEDS ORDERED: fentaNYL (PF) 50 MCG/ML 2 ML AMP IVP ONE (11:03)
[2023-03-23] MEDS ORDERED: LIDOCAINE 1% INJ 10MG/ML (20 ML MDV) SQ ONE (11:05)
[2023-03-23] MEDS ORDERED: VERAPAMIL SYRINGE (5 MG/10 ML) INTRAARTER ONE (11:07)
[2023-03-23] MEDS ORDERED: HEPARIN SODIUM 1,000 UN/ML (10ML VL) IV ONE (11:08)
[2023-03-23] MEDS ORDERED: IOPAMIDOL-370 200ML BTL INJ ONE (11:11)
--- NOTE | 2023-03-23 11:23 | P.CARDCATH ---
Description of Procedure: PROCEDURES PERFORMED: Left heart catheterization, bilateral coronary angiography, ultrasound guided arterial access INDICATION: Abnormal stress test CONSENT:I have discussed the risks, benefits and alternative therapies for the above-mentioned procedure and for both sedation/analgesia as well as necessary blood product administration, if indicated, as they pertain to this patient. The patient has indicated understanding and acceptance of the risks and procedures discussed. PROCEDURE: After the risks, benefits and alternatives of the above mentioned procedure explained in detail with the patient, informed consent was obtained. Patient was taken to the catheterization lab and prepped and draped in usual fashion. Ultrasound guidance was used to assess for arterial access. 1% lidocaine was used to anesthetize the right radial artery. A 6-Tunisian sheath was placed in the right radial artery using modified Seldinger technique and ultrasound guidance. Left coronary angiography was performed with a 5-Tunisian JL 3.5 catheter and right coronary angiography was performed with a 5-Tunisian FR5 catheter in various views. A 5-Tunisian FR5 catheter was inserted into the left ventricle and pressure measurements were obtained. The right radial sheath was removed and a TR band was placed with hemostasis achieved. The patient to lerated the procedure well. Patient was transported back to the post catheterization holding area in stable condition. Conscious Sedation: Patient was monitored under the direct supervision of myself for conscious sedation using Versed and fentanyl for a total duration of 8 minutes HEMODYNAMICS: Aorta: 137/72 LV: 131/5, LVEDP 19 SELECTIVE CORONARY ARTERIOGRAPHY: LEFT MAIN: The left main is a large caliber vessel which bifurcates into the LAD and circumflex. There is no significant stenosis. LEFT ANTERIOR DESCENDING CORONARY ARTERY: LAD is a large caliber vessel which wraps around to the apex. There are mild luminal irregularities with a more focal 30-40% mid LAD stenosis LEFT CIRCUMFLEX CORONARY ARTERY: Left circumflex is a moderate caliber vessel without significant stenosis. RIGHT CORONARY ARTERY: The right coronary artery is a large caliber vessel which gives off a PDA and PLV branch and is the dominant vessel. There are mild 10- 20% calcified stenosis of the mid and distal RCA. FINAL IMPRESSION: 1. Mild to moderate CAD as described above including 30-40% LAD and 10-20% RCA stenosis 2. Elevated left sided filling pressures PLAN: 1. Aggressive risk factor modification per most recent ACC/AHA guidelines. 2. Follow-up in the office in 1-2 weeks.
[2023-03-23 16:32] VITALS: BP 120/66; PULSE 85
== END 2023-03-23 15:01 | disposition home or self-care (01) ==
LOC: CATHCVL 09:53
PROVIDERS: ATTEND Internal Medicine
DX: I25.10 Atherosclerotic heart disease of native coronary artery without angina pectoris (principal); I10 Essential (primary) hypertension; E78.5 Hyperlipidemia, unspecified; F17.210 Nicotine dependence, cigarettes, uncomplicated; Z79.899 Other long term (current) drug therapy
CPT/HCPCS: 93458; 76937; C1769; C1894; J2250; J2001; J3010; J1644; Q9967

== ENCOUNTER → 2023-06-29 | Outpatient (CLI) | payer MEDICARE ==
--- NOTE | 2023-07-02 10:35 | MM ---
Reason for Exam: Screening (asymptomatic). Last screening mammogram was performed 12 month(s) ago. Patient History: Menarche at age 14. First Full-Term at age 20. Postmenopausal. Patient used Hormonal Contraceptives for 15 years. Maternal half sister had breast cancer, age 50. Risk Values: Karissa 5 year model risk: 1.4%. NCI Lifetime model risk: 3.6%. Prior Study Comparison: 05/28/2020 Bilateral Screening Mammogram, [facility]. 06/17/2021 Bilateral Screening Mammogram, [facility]. 06/20/2022 Bilateral MG 3D screening mammo w/cad, [facility]. Tissue Density: There are scattered areas of fibroglandular density. Findings: Analyzed By CAD. Right breast: There is no suspicious group of microcalcifications or new suspicious mass. Benign-appearing calcifications right breast. Left breast: There is no suspicious group of microcalcifications or new suspicious mass. Benign-appearing calcifications left breast. Overall Assessment: Benign, BI-RAD 2 Management: Screening Mammogram of both breasts in [address] [facility] will attempt to contact patient to return for supplemental views and ultrasound if indicated. Patient should continue monthly self-breast exams. A clinical breast exam by your physician is recommended on an annual basis. This exam should not preclude additional follow-up of suspicious palpable abnormalities. Note on Karissa scores and lifetime risk: 1. A Karissa score greater than 3% is considered moderate risk. If this is the case, consider specialist referral to assess eligibility for a risk reducing agent. 2. If overall lifetime risk for the development of breast cancer is 20% or higher, the patient may qualify for future screening with alternating mammogram and breast MRI. Electronically signed and approved by: Hadley Mcmanus DO
== END | disposition home or self-care (01) ==
LOC: RADMAMWWP 11:21
PROVIDERS: ATTEND Family Medicine
DX: Z12.31 Encounter for screening mammogram for malignant neoplasm of breast (principal); Z80.3 Family history of malignant neoplasm of breast; Z78.0 Asymptomatic menopausal state
CPT/HCPCS: 77063; 77067

== ENCOUNTER 2023-09-10 09:32 | Day surgery (SDC) | payer MEDICARE ==
[2023-09-05 11:26] VITALS: BMI 37.8
[~2023-09-10 09:32] MED LIST changes: -ALPRAZolam 0.25 MG TAB PO PRN; -ALPRAZolam 0.5 MG TAB PO PRN; -ASPIRIN 325 MG TAB PO STA; +LIDOCAINE 1% (10MG/ML) FOR IV START INTRADERMA PRN; -NITROGLYCERIN SL TABS 0.4 MG TAB SUBLINGUAL PRN; -SODIUM CHLORIDE 0.9% 1,000 ML in EMPTY BAG 1 BAG IV SCH
[2023-09-10] MEDS: LACTATED RINGERS 1,000 ML IV SCH (10:29)
[2023-09-10 10:44] VITALS: TEMP 96.7
[2023-09-10 10:46] LABS: Glucose,Whole Blood 83 mg/dL (70-110)
[2023-09-10] MEDS: IV FLUID CONTINUATION 1,000 ML IV ONE ×2 (10:57→11:32)
[2023-09-10] MEDS ORDERED: PROPOFOL 10 MG/ML 20 ML VIAL IV ONE (11:32)
[2023-09-10] MEDS ORDERED: LIDOCAINE 1% INJ 10MG/ML (20 ML MDV) ONE (11:32)
--- NOTE | 2023-09-10 11:40 | P.GSHP ---
History of Present Illness H&P Date: 09/10/23 Chief Complaint: Screening colonoscopy This is a 73-year-old female presents today for screening colonoscopy. Patient denies any significant GI complaints. Past Medical History Past Medical History: Eye Disorder, Hyperlipidemia, Hypertension, Osteoarthritis (OA) Additional Past Medical History / Comment(s): Recent "I failed my stress test February."LACTOSE INTOLERANT, ANEMIA., STATES SOB AT TIMES -"I WONDER IF I HAVE COPD","I have pre atrial fib." "My heart skips a beat.", "My right knee gives out.", ON JARDIANCE FOR HEART NOT DIABETES History of Any Multi-Drug Resistant Organisms: None Reported Past Surgical History: Ear Surgery, Heart Catheterization Additional Past Surgical History / Comment(s): Cataract removed Rt eye March 19 2023, D+C, ear surgery. COLONOSCOPY Past Anesthesia/Blood Transfusion Reactions: Postoperative Nausea & Vomiting (PONV) Smoking Status: Former smoker - Past Family History Sister(s) Family Medical History: Cancer, Diabetes Mellitus Additional Family Medical History / Comment(s): BREAST & FEMALE CANCER Brother(s) Family Medical History: Cancer Additional Family Medical History / Comment(s): BONE AND BLOOD CANCER Mother Family Medical History: Diabetes Mellitus Daughter(s) Additional Family Medical History / Comment(s): HYPOGLYCEMIA Father Family Medical History: Cancer Medications and Allergies Home Medications Medication Instructions Recorded Confirmed Type Atorvastatin [Lipitor] 40 mg PO QAM 03/05/15 09/05/23 History lisinopriL [Zestril] 2.5 mg PO QAM 07/29/19 09/05/23 History diphenhydrAMINE [Benadryl] 25 mg PO DIRECTED PRN 12/22/19 09/05/23 History Apixaban [Eliquis] 5 mg PO BID 03/19/23 09/05/23 History Metoprolol Tartrate 12.5 mg PO BID 03/19/23 09/05/23 History Cholecalciferol (Vitamin D3) 4,000 unit PO DAILY 09/05/23 09/05/23 History [Vitamin D3 (50 Mcg = 2000 Iu) Chew Tab] Empagliflozin [Jardiance] 10 mg PO DAILY 09/05/23 09/05/23 History Spironolactone 12.5 mg PO DAILY 09/05/23 09/05/23 History Varenicline [Chantix Continuing 1 mg PO BID 09/05/23 09/05/23 History Pack] Allergies Allergy/AdvReac Type Severity Reaction Status Date / Time adhesive Allergy Itching/bur Verified 09/05/23 11:13 isidro Milk Containing Products Allergy Diarrhea Verified 09/05/23 11:13 (Dairy) [Milk Containing Products] Surgical - Exam Vital Signs Temp Pulse Resp BP Pulse Ox 96.7 F L 98 18 139/89 97 09/10/23 10:42 09/10/23 10:42 09/10/23 10:42 09/10/23 10:42 09/10/23 10:42 - General well developed, well nourished, no distress - Eyes PERRL - ENT normal pinna - Neck no masses - Respiratory normal expansion - Abdomen Abdomen: soft, non tender Assessment and Plan Assessment: Will perform Screening colonoscopy.
--- NOTE | 2023-09-10 11:56 | P.OP ---
Date of Procedure: 09/10/23 Preoperative Diagnosis: Screening colonoscopy Postoperative Diagnosis: Rectal polyp Procedure(s) Performed: Colonoscopy Anesthesia: MAC Surgeon: Jer Levy Pathology: other (Rectal polyp) Condition: stable Disposition: PACU Description of Procedure: The patient was placed on the operative table in the lateral position. She received IV sedation. Digital rectal exam was performed. This revealed no abnormalities. The flexible colonoscope was then placed patient anus and passed throughout the entire colon. The ileocecal valve was visualized. The cecum, ascending and transverse colon appeared normal. In the descending sigmoid colon there were no polyps or diverticuli seen. Scope was brought back to the rectum and t a sessile polyp was visualized. This was removed with a cold forcep. The scope was withdrawn for the patient.
[2023-09-10 11:57] VITALS: RESP 16
[2023-09-10 12:17] VITALS: BP 121/78; PULSE 94
== END 2023-09-10 13:16 | disposition home or self-care (01) ==
LOC: ORWHC2ENDO 09:32
PROVIDERS: ATTEND Surgery
DX: E78.5 Hyperlipidemia, unspecified (principal); I10 Essential (primary) hypertension; J44.9 Chronic obstructive pulmonary disease, unspecified; M19.90 Unspecified osteoarthritis, unspecified site; I25.810 Atherosclerosis of coronary artery bypass graft(s) without angina pectoris; L23.1 Allergic contact dermatitis due to adhesives; Z86.69 Personal history of other diseases of the nervous system and sense organs; Z87.891 Personal history of nicotine dependence; Z83.3 Family history of diabetes mellitus; Z80.3 Family history of malignant neoplasm of breast; Z79.01 Long term (current) use of anticoagulants; Z79.84 Long term (current) use of oral hypoglycemic drugs; Z79.899 Other long term (current) drug therapy
CPT/HCPCS: 88305; 45380; J2001; J2704

== ENCOUNTER → 2024-01-31 | Outpatient (CLI) | payer MEDICARE ==
--- NOTE | 2024-01-31 11:38 | US ---
EXAMINATION TYPE: US kidneys/renal and bladder DATE OF EXAM: 01/31/2024 COMPARISON: NONE CLINICAL INDICATION: Female, 73 years old with history of I13.0 HYP HRT CHR KDNY DIS W HRT FAIL; CK D TECHNIQUE: Grayscale imaging of the bilateral kidneys and urinary bladder: FINDINGS: EXAM MEASUREMENTS: Right Kidney: 9.3 x 4.7 x 4.7 cm Left Kidney: 9.7 x 4.4 x 4.5 cm Right Kidney: No hydronephrosis or masses seen Left Kidney: No hydronephrosis or masses seen Bladder: wnl Bilateral Jets seen: yes There is no evidence for hydronephrosis at this point in time. No nephrolithiasis is seen. No joel s are identified. The urinary bladder is anechoic. IMPRESSION: No evidence for acute process. [facility], , 01/31/2024 11:35 AM
== END | disposition home or self-care (01) ==
LOC: RADUSWWP 09:55
PROVIDERS: ATTEND Family Medicine
DX: I13.0 Hypertensive heart and chronic kidney disease with heart failure and stage 1 through stage 4 chronic kidney disease, or unspecified chronic kidney disease (principal); N18.31 Chronic kidney disease, stage 3a; Z79.890 Hormone replacement therapy
CPT/HCPCS: 76770

== ENCOUNTER → 2024-02-05 | Outpatient (CLI) | payer MEDICARE ==
[2024-02-05 19:32] LABS: Appearance,Urine Clear (Clear); Bilirubin,Urine Negative (Negative); Blood,Urine Negative (Negative); Color,Urine Yellow (Yellow); Ketones,Urine Negative (Negative); Nitrite,Urine Negative (Negative); Specific Gravity,Urine 1.017 (1.001-1.030); Urobilinogen,Urine 0.2 E.U./DL
[2024-02-05 19:43] LABS: Bacteria,Urine 1+ (None Seen)
[2024-02-05 19:54] LABS: ALT 13 U/L (8-44); AST 17 U/L (13-35); Albumin 4.2 g/dL (3.8-4.9); Alkaline Phosphatase 75 U/L (41-126); BUN/Creat Ratio 13.55 Ratio (12.00-20.00); Blood Urea Nitrogen 14.9 mg/dL (9.0-27.0); Calcium 9.9 mg/dL (8.7-10.3); Carbon Dioxide 26.5 mmol/L (21.6-31.8); Chloride 106 mmol/L (96-109); Globulin 2.8 g/dL (1.6-3.3); Glucose 92 mg/dL (70-110); Magnesium 1.9 mg/dL (1.5-2.4); Phosphorus 3.7 mg/dL (2.4-5.1); Potassium 4.5 mmol/L (3.5-5.5); Sodium 143 mmol/L (135-145); Total Bilirubin 0.4 mg/dL (0.3-1.2)
[2024-02-05 19:59] LABS: HCT 45.1 % (37.2-46.3); HGB 13.8 g/dL (12.0-15.0); MCH 29.6 pg (27.0-32.0); MCHC 30.6 g/dL (32.0-37.0); MCV 96.6 FL (80.0-97.0); Mean Platelet Volume 12.4 FL (9.5-12.2); NRBC Per 100 WBC 0 X 10*3/uL (0.00-0.01); Platelet Count 220 X 10*3/uL (140-440); RBC 4.67 X 10*6/uL (4.10-5.20); RDW 13.3 % (11.5-14.5); WBC 6.56 X 10*3/uL (4.50-10.00)
[2024-02-05 20:00] LABS: Basophils # (A) 0.06 X 10*3/uL (0.00-0.10); Basophils % (A) 0.9 %; Eosinophils # (A) 0.19 X 10*3/uL (0.04-0.35); Eosinophils % (A) 2.9 %; Lymphocytes # (A) 1.94 X 10*3/uL (0.90-5.00); Lymphocytes % (A) 29.6 %; Monocytes # (A) 0.54 X 10*3/uL (0.20-1.00); Monocytes % (A) 8.2 %; Neutrophils # (A) 3.82 X 10*3/uL (1.80-7.70); Neutrophils % (A) 58.2 %
[2024-02-06 03:08] LABS: Microalbumin Creatinine Ratio <17 mg/g Cr (0-30); Urine Creatinine 69.3 mg/dL (28.0-217.0)
== END | disposition home or self-care (01) ==
LOC: LABWHC1 12:02
PROVIDERS: ATTEND Internal Medicine Nephrology
DX: N18.9 Chronic kidney disease, unspecified (principal)
CPT/HCPCS: 36415; 80053; 81001; 82043; 82570; 83735; 84100; 85025

== ENCOUNTER → 2024-08-25 | Outpatient (CLI) | payer MEDICARE ==
--- NOTE | 2024-08-25 08:23 | MM ---
Reason for Exam: Screening (asymptomatic). Last mammogram was performed 1 year(s) and 2 month(s) ago. Patient History: Menarche at age 14. First Full-Term at age 20. Postmenopausal. Patient used Hormonal Contraceptives for 15 years. Maternal half sister had breast cancer, age 50. Risk Values: Karissa 5 year model risk: 1.4%. NCI Lifetime model risk: 3.3%. Prior Study Comparison: 06/17/2021 Bilateral Screening Mammogram, [facility]. 06/20/2022 Bilateral MG 3D screening mammo w/cad, [facility]. 06/29/2023 Bilateral MG 3D screening mammo w/cad, [facility]. Tissue Density: There are scattered areas of fibroglandular density. Findings: Analyzed By CAD. There are multiple small benign-appearing round and linear calcifications bilaterally redemonstrated. There is no suspicious group of microcalcifications or new suspicious mass in either breast. Overall Assessment: Benign, BI-RAD 2 Management: Screening Mammogram of both breasts in 1 year. . Patient should continue monthly self-breast exams. A clinical breast exam by your physician is recommended on an annual basis. This exam should not preclude additional follow-up of suspicious palpable abnormalities. Note on Karissa scores and lifetime risk: 1. A Karissa score greater than 3% is considered moderate risk. If this is the case, consider specialist referral to assess eligibility for a risk reducing agent. 2. If overall lifetime risk for the development of breast cancer is 20% or higher, the patient may qualify for future screening with alternating mammogram and breast MRI. [facility], , 08/25/2024 8:20 AM. Electronically signed and approved by: Jose Dowd M.D.
--- NOTE | 2024-08-25 08:41 | BD ---
EXAMINATION TYPE: Axial Bone Density DATE OF EXAM: 08/25/2024 CLINICAL HISTORY: 74 years old Female. ICD-10 CODE: Z78.0 POSTMENO , Additional History: Height: 60 Weight: 188 FRAX RISK QUESTIONS: History of Fracture in Adulthood: yes Secondary Osteoporosis: 3. Menopause before 45: yes Current Tobacco Use: yes RISK FACTORS HISTORY OF: History of Wrist Fracture: right wrist When: age 55 MEDICATIONS: EXAM MEASUREMENTS: Bone mineral densitometry was performed using the [employer] System. Bone mineral density as measured about the Lumbar spine is: ----- L1-L4(G/cm2): 1.602 T Score Values are as follows: ----- L1: 2.3 ----- L2: 2.7 ----- L3: 4.3 ----- L4: 4.2 ----- L1-L4: 3.5 Z Score Values are as follows: ----- L1: 3.4 ----- L2: 3.8 ----- L3: 5.4 ----- L4: 5.2 ----- L1-L4: 4.6 Bone mineral density has: Increased 6.4% since study of: 05-28-20 Bone mineral density about the R hip (g/cm2): 1.336 Bone mineral density about the L hip (g/cm2): 1.347 T Score values are as follows: -----R Neck: 1.4 -----L Neck: 1.1 -----R Total: 2.6 -----L Total: 2.7 Z Score values are as follows: -----R Neck: 2.8 -----L Neck: 2.6 -----R Total: 3.8 -----L Total: 3.9 Bone mineral density has: Increased 0.2% since study of: 05-28-20 FRAX%s: The graph provided illustrates a 8.0% chance for a major osteoporotic fx and a 0.5% chance fo r the hips probability for fx in 10 years time. IMPRESSION: Normal (Values between +1 and -1 indicate normal bone mass). Consider repeating this study in 5 year s or sooner if there is some new clinical indication. NOTE: T-SCORE=SD OF THE YOUNG ADULT MEAN. [facility], , 08/25/2024 8:38 AM
== END | disposition home or self-care (01) ==
LOC: RADBDWWP 07:23
PROVIDERS: ATTEND Family Medicine
DX: Z12.31 Encounter for screening mammogram for malignant neoplasm of breast (principal); Z00.00 Encounter for general adult medical examination without abnormal findings; R92.323 Mammographic fibroglandular density, bilateral breasts; R92.1 Mammographic calcification found on diagnostic imaging of breast; Z80.3 Family history of malignant neoplasm of breast; Z78.0 Asymptomatic menopausal state; Z92.0 Personal history of contraception
CPT/HCPCS: 77063; 77067; 77080

== ENCOUNTER 2024-09-01 12:43 | Day surgery (SDC) | payer MEDICARE ==
[~2024-09-01 12:43] MED LIST changes: +LACTATED RINGERS 1,000 ML IV SCH
== END 2024-09-01 13:15 ==
LOC: ORWHC2ENDO 12:43
PROVIDERS: ATTEND Surgery
DX: Z12.11 Encounter for screening for malignant neoplasm of colon (principal); Z53.9 Procedure and treatment not carried out, unspecified reason